=== PATIENT | female | born 1970 | race Caucasian/White ===

== ENCOUNTER 2016-10-07 08:56 | Day surgery (SDC) | payer BC ==
[~2016-10-07 08:56] MED LIST: ACETAMINOPHEN 500 MG TABLET PO PRN; HYDROmorphone HCL 2 MG/ML VIAL IV PRN; MAG HYDROX/ALUMINUM HYD/SIMETH 30 ML UDC PO PRN; MAGNESIUM HYDROXIDE 30 ML UDC PO PRN; ONDANSETRON HCL/PF 2 MG/ML VIAL IV PRN; PROMETHAZINE HCL 25 MG in DEXTROSE 5 % IN WATER 50 ML IV PRN; RINGERS SOLUTION,LACTATED 1,000 ML IV PRN; ZOLPIDEM TARTRATE 5 MG TABLET PO PRN; ceFAZolin SODIUM 1 GM VIAL IV PRN; diphenhydrAMINE HCL 50 MG/ML VIAL IV PRN; oxyCODONE HCL/ACETAMINOPHEN 1 TAB TABLET PO PRN
[2016-10-07] MEDS ORDERED: BUPIVACAINE HCL 50 ML VIAL IJ ONE (10:05)
--- NOTE | 2016-10-07 11:06 | OR ---
Operative Report - Dictated Report Narrative: Date: 10/07/2016 Physician: Carlos Velasquez M.D. [place] Supervisor: Sánchez Rider PA-C Preoperative diagnosis: Right volar wrist ganglion cyst Postoperative diagnosis: Right volar wrist ganglion cyst Procedure: Excision of right volar wrist ganglion cyst Anesthesia: MAC plus local Complications: None Estimated blood loss: Minimal Tourniquet time: 28 Minutes at 250 mmHg Specimens: None Retained implants: None Drains: None Indications: Germán Is a 46 year-old female who has been followed in my clinic with complaints of a volar wrist ganglion. This was excised 7 years ago but recurred and over the last several months has become quite large in size. Conservative measures including aspiration have failed. The risks, benefits, and alternatives were discussed in clinic. The risks being bleeding, infection , nerve, tendon, blood vessel injury, persistent pain, wound complications, and recurrence. Consent was obtained in the clinic. Procedure: After marking the correct extremity in the preoperative holding area, a timeout was performed in the operating room. IV antibiotics consisting of 1 g of Ancef were administered prior to the procedure. A well-padded tourniquet was applied to the operative upper arm. The arm was exsanguinated and the tourniquet was inflated to 250 mmHg. 0.5% Marcaine without epinephrine was infused into the projected incision site. We marked out an incision over the cyst. The skin directly over the cyst was very thin and quite stretched so we bao out an elliptical incision in order to ellipse out the central portion of the skin to obtain a better closure at the conclusion of the procedure. Incision was made and the central portion the skin was ellipsed out. combination of blunt dissection and sharp dissection with tenotomy scissors as well as electrocautery was undertaken to carefully dissect out the ganglion. It started just lateral to the FCR tendon which was retracted medially. We explored the wound and attempted to locate the radial artery and found what appeared to be the proximal and distal stalks however the portion of the artery running next to the cyst was obliterated and scarred in to the cyst likely due to the long-standing nature of the cyst itself. We continued our dissection circumferentially around the cyst and followed it all the way down to the radiocarpal joint which appeared to be where it was originating from. We were careful not to injure the volar radiocarpal ligaments. We identified what appeared to be the stalk extending from the volar aspect of the radiocarpal joint and ablated this with our bipolar electrocautery. The ganglion was then removed from the wound and placed in a specimen cup to be sent to pathology. We explored the wound one last time to assure that we had not left any portions of the cyst and felt that we had resected the cyst in its entirety including the stalk. Tourniquet was then let down and hemostasis was obtained with a combination of direct pressure and electrocautery. Gelfoam was placed deep in the wound to aid with hemostasis. The hand and fingers were inspected and found to have brisk capillary refill. Wound was then copiously irrigated with normal saline and closed with interrupted 4-0 nylon. Xeroform, 4 x 4's, soft roll, and a well-padded dorsal short arm wrist splint was applied. The patient was awoken and transferred to the post-anesthesia care unit in stable condition. All sponge, needle, blade, and instrument counts were correct prior to closing the wounds. Additional 0.5% Marcaine without epinephrine was infused into the skin edges for pain control.
[2016-10-07 11:58] VITALS: BP 113/70
[2016-10-07] MEDS ORDERED: SENNOSIDES/DOCUSATE SODIUM 1 TAB TABLET PO SCH (21:00)
== END 2016-10-07 08:57 | disposition home or self-care (01) ==
LOC: AMB 08:56
PROVIDERS: ATTEND Orthopaedic Surgery
PROC: 0XBG0ZZ Excision of Right Wrist Region, Open Approach (ICD-10-PCS; principal; 2016-10-07 10:30)
DX: M67.431 Ganglion, right wrist (principal); E03.9 Hypothyroidism, unspecified; F41.9 Anxiety disorder, unspecified; F32.9 Major depressive disorder, single episode, unspecified; Z87.891 Personal history of nicotine dependence; Z68.26 Body mass index [BMI] 26.0-26.9, adult

== ENCOUNTER 2017-01-10 22:59 | Emergency (ER) | payer BC ==
[2017-01-10 23:46] LABS: Hematocrit 40.8 % (37.0-47.0); Hemoglobin 13.9 gm/dL (12.5-16.0); Mean Cell Volume 97.1 fl (78-100); Mean Corpuscular Hemoglobin 33.1 pg (27-31); Mean Corpuscular Hgb Conc 34.1 g/dl (32-36); Mean Platelet Volume 11.6 fl (6.0-9.5); Neutrophil # 5.7 K/mm3 (1.3-6.0); Neutrophil % 50.2 % (42-75.0); Platelet Count 244 K/mm3 (150-450); Red Cell Distribution Width 13.4 % (11.5-14.0); White Blood Count 11.4 K/mm3 (4.0-10.5)
[2017-01-10 23:57] LABS: Prothrombin Time (Patient) 9.6 Seconds (9.4-11.4)
[2017-01-10 23:58] LABS: INR 0.92 INR (0.90-1.10); Partial Thrombolplastin Time 25.4 Seconds (24-32)
[2017-01-11 00:05] LABS: ALT 39 U/L (19-67); AST 22 U/L (0-48); Albumin * 3.6 gm/dl (3.4-5.0); Alkaline Phosphatase * 89 U/L (50-170); Anion Gap 11.7 mmol/L (6.8-13.8); BUN/Creatinine Ratio 17.2 (9.0-21.6); Bilirubin, Total 0.2 mg/dL (0.0-1.1); Blood Urea Nitrogen 15 mg/dL (3-23); Ca. Corrected For Albumin 8.6 mg/dL (8.4-10.2); Calcium * 8.6 mg/dL (7.9-10.9); Carbon Dioxide 28.2 mmol/L (24-32.6); Chloride 104 mmol/L (97-106); Glucose * 121 mg/dL (70-110); Potassium 3.9 mmol/L (3.4-4.6); Sodium 140 mmol/L (132-142); Total Protein 7.1 gm/dL (6.2-8.2); Troponin I Less than 0.017 ng/ml (0.00-0.10)
--- NOTE | 2017-01-11 02:05 | ERNOTE ---
Chest Pain/Cardiac HPI Date of Service: 01/11/17 Chief Complaint: Chest Pain Time Seen by Provider: 01/11/17 01:59 Source: patient, family Immunizations: IMMUNIZATION HX Immunizations Up to Date Unk History of Influenza Vaccine Yes Hx Pneumococcal Vaccination No Allergies/Adverse Reactions: Allergies duloxetine HCl [From Cymbalta] Adverse Reaction (Mild, Verified 10/07/16 09:10) Nausea terbinafine HCl [From Lamisil] Adverse Reaction (Mild, Verified 10/07/16 09:10) Nausea Home Medications: HOME MEDICATIONS Atorvastatin Calcium [Lipitor] 20 mg PO DAILY 05/03/16 [Last Taken Unknown] Levothyroxine Sodium [Tirosint] 50 mcg PO DAILY 05/03/16 [Last Taken Unknown] Venlafaxine HCl 75 mg PO DAILY 05/03/16 [Last Taken Unknown] ALPRAZolam [Xanax] 0.5 mg PO HS 10/06/16 [Last Taken Unknown] Narrative: C/O CHEST PAIN WHILE HAVING INTERCOURSE [employer] [employer]. DENIES HX OF CHEST PAIN OR HEART DISEASE. DOES HAVE HTN AND ANXIETY HX. SHE SAYS PAIN WAS AT RIGHT MEDIAL CHEST TO LEFT MEDIAL CHEST AND INTO RIGHT NECK AND JAW. IT STARTED AT 2230 AND LASTED ABOUT 45 MINS. NO SOB OR DIAPHORESIS. SHE IS FINE NOW . SHE SAYS THAT THERE IS FHX OF DAD WITH CABG. Review of Systems - Review of Systems Constitutional: Present: See HPI Respiratory: Present: no symptoms reported Cardiology: Present: See HPI, chest pain Gastrointestinal/Abdominal: Present: no symptoms reported Musculoskeletal: Present: no symptoms reported Skin: Present: no symptoms reported Neurological: Present: no symptoms reported Psych: Present: no symptoms reported All Other Systems: All systems neg except as marked - Patient's Past Medical History Patient History - Medical: Anxiety, Depression, Hypothyroidism, Migraines, Other Patient History - Cardiac/Respiratory: Hyperlipidemia Patient History - Cancer: No Hx of Cancer Patient History - Surgical Procedures: Tubal Ligation Patient History - Other: None - Family History Father Family History - Medical: Diabetes Type 2 Family History - Cardiac/Respiratory: No pertinent hx Family History - Cancer: No pertinent family hx Mother Family History - Medical: Diabetes Type 2 Family History - Cardiac/Respiratory: CVA/Stroke, Myocardial Infarction Family History - Cancer: Cervical - Social History Living Situations: spouse Abuse History: No History of abuse Psych History: Hx of Anxiety, Hx of Depression, Current tx/ever been on anti- depressants or anti-anxiety meds Smoking Status: Current every day smoker Patient requests Smoking Cessation Consult: No Initiate information on Smoking Cessation: No Alcohol Use: none Drug Use: other - Immunizations Immunizations Up to Date: - Unk Hx Pneumococcal Vaccination: No History of Influenza Vaccine: Yes Physical Exam - Physical Exam General Appearance: Present: wd/wn, alert, no apparent distress Respiratory: Present: no respiratory distress, normal breath sounds, no accessory muscle use, chest nontender, lungs clear Cardiovascular/Chest: Present: regular rate, rhythm, no murmur, normal peripheral pulses Peripheral Pulses: N=norm/S=strong/W=weak/B=bound/A=absent: Dorsalis-pedis (R): Normal, Dorsalis-pedis (L): Normal Gastrointestinal/Abdominal: Present: normal bowel sounds, nontender Back Exam: Present: normal inspection, no CVA tenderness, no vertebral tenderness Extremity Exam: Present: normal inspection, no edema Neurological Exam: Present: alert, oriented Skin Exam: Present: normal color ED Progress - Results and Orders Patient's Lab Results:: I have reviewed the patient's lab results. Results and Orders: LABS ARE NEG. INCLUDING TWO TROP 4 HR APART - Vital Signs Patient's Vital Signs:: I have reviewed the patient's vital signs. Vital Signs: Vital Signs 01/10/17 01/10/17 01/10/17 23:03 23:10 23:54 Temperature 36.4 C L 36.5 C Pulse Rate 71 73 66 Respiratory 16 14 Rate Blood Pressure 144/85 122/83 O2 Sat by Pulse 99 98 Oximetry - EKG EKG: NSR, no ST T wave changes - X-Ray X-Ray #1 X-Ray: chest Interpretation: Interp. by me - WNL - Progress/Reassessment Chief Complaint: Chest Pain Progress:: Pain free at discharge - Transfer of Care Expected Disposition: Discharge Departure - Departure Clinical Impression: Chest pain of unknown etiology Disposition: Home Follow Up Needed Condition: Good Instructions: Chest Pain Observation Additional Instructions: THERE IS NOT CURRENT SIGN OF A HEART ATTACK . I CAN NOT TELL YOU FOR SURE THAT YOU DO NOT HAVE CORONARY ARTERY DISEASE SO IT IS NECESSARY THAT YOU FOLLOW UP WITH YOUR FAMILY DOCTOR AND MAKE ARRANGEMENTS FOR FURTHER EVALUATION. IF WORSE BEFORE THEN YOU SHOULD RETURN TO THE ER. IT WOULD BE GOOD TO TAKE A DAILY BABY ASPIRIN FOR NOW. Referrals: Negra Meek MD [Primary Care Provider] -
--- OUTSIDE RECORDS SUMMARY | 2017-01-11 02:47 | XMS REPORT | Continuity of Care Document ---
:1970 Author Organization [facility] ([facility]) Address [address] [place] [address] Phone [phone] Care Team Providers Name Role Phone Unavailable Primary Care Provider Unavailable Source Comments This disclosure is being made pursuant to the Care Everywhere program, applicable federal and state laws, and may not contain all informaitonavailable regarding this patient.[facility] ([facility]) Active Allergies and Adverse Reactions Not on File Current Medications Not on file Active Problems Not on file Social History Tobacco Use Types Packs/Day Years Used Date Never Assessed Plan of Care Health Maintenance Due Date Last Done Comments Hepatitis B Vaccine (1 of 3 - Primary Series) 1970 Tdap Vaccine 1981 Lipid Disorder Screening 1988 MMR Vaccine 1988 Td Vaccine 1988 Cervical Cancer Screening 2000 Mammogram 2010 Influenza Vaccine: Seasonal (#1) 04/14/2016 Results from Last 3 Months Not on file
[2017-01-11 04:24] VITALS: BP 102/58
== END 2017-01-11 04:41 | disposition home or self-care (01) ==
LOC: ER 22:59
DX: R07.89 Other chest pain (principal); F17.210 Nicotine dependence, cigarettes, uncomplicated; E78.5 Hyperlipidemia, unspecified; F41.9 Anxiety disorder, unspecified; E03.9 Hypothyroidism, unspecified; F32.9 Major depressive disorder, single episode, unspecified

== ENCOUNTER 2017-09-02 08:46 | Day surgery (SDC) | payer BC ==
[~2017-09-02 08:46] MED LIST changes: -ACETAMINOPHEN 500 MG TABLET PO PRN; -HYDROmorphone HCL 2 MG/ML VIAL IV PRN; -MAG HYDROX/ALUMINUM HYD/SIMETH 30 ML UDC PO PRN; -MAGNESIUM HYDROXIDE 30 ML UDC PO PRN; -ONDANSETRON HCL/PF 2 MG/ML VIAL IV PRN; -PROMETHAZINE HCL 25 MG in DEXTROSE 5 % IN WATER 50 ML IV PRN; +RINGER'S SOLUTION,LACTATED 1,000 ML IV PRN; -RINGERS SOLUTION,LACTATED 1,000 ML IV PRN; -ZOLPIDEM TARTRATE 5 MG TABLET PO PRN; -ceFAZolin SODIUM 1 GM VIAL IV PRN; +ceFAZolin SODIUM 1 GM in DEXTROSE 5 % IN WATER 100 ML IV PRN; -diphenhydrAMINE HCL 50 MG/ML VIAL IV PRN; -oxyCODONE HCL/ACETAMINOPHEN 1 TAB TABLET PO PRN
[2017-09-02] MEDS ORDERED: RINGER'S SOLUTION,LACTATED 1,000 ML IV ONE ×3 (09:23→14:25)
[2017-09-02] MEDS ORDERED: LIDOCAINE HCL/EPINEPHRINE 50 ML VIAL IJ ONE ×3 (12:30)
[2017-09-02] MEDS ORDERED: diphenhydrAMINE HCL 50 MG/ML VIAL IV PRN (15:25)
[2017-09-02] MEDS ORDERED: NALOXONE HCL 0.4 MG/ML VIAL IV PRN (15:25)
[2017-09-02] MEDS ORDERED: HYDROmorphone HCL 2 MG/ML VIAL IV PRN (15:25)
[2017-09-02] MEDS ORDERED: PROMETHAZINE HCL 12.5 MG in DEXTROSE 5 % IN WATER 50 ML IV PRN ×2 (15:25)
--- NOTE | 2017-09-02 15:57 | OR ---
Operative Report - Dictated Report Narrative: DATE OF PROCEDURE: 09/02/2017 INDICATIONS: 47 year old female with symptomatic uterovaginal prolapse, stress incontinence, and occasional fecal incontinence PREOPERATIVE DIAGNOSIS: Symptomatic uterovaginal prolapse, stress incontinence, occasional fecal incontinence POSTOPERATIVE DIAGNOSIS: [Same] PROCEDURE: [Total vaginal hysterectomy, anterior and posterior colpoperineorrhaphy, bilateral uterosacral ligament suspension, transvaginal mid -urethral sling using the 2[employer] Online Advantage System, Cystoscopy] SURGEON: Zach Lynn D.O. CAD CAM PROGRAMMER: OR staff ANESTHESIA: [General] ESTIMATED BLOOD LOSS: 100 mL URINE OUTPUT: 50 mL FLUID REPLACEMENT: 1700 mL SPECIMEN(S): [Uterus with cervix] FINDINGS: 10 week size uterus with patulous cervix, mild cystocele, moderate rectocele, genuine stress urinary incontinence TECHNIQUE: The patient was taken to the operating room and placed in dorsal lithotomy position after adequate general anesthesia was obtained, SCDs placed, and [1 g of Ancef] given intravenously. The cervix was grasped with 2 single- tooth tenacula and a paracervical block was given using 1% lidocaine with epinephrine. Posterior colpotomy was performed using Peres scissors. A long weighted speculum was placed into the posterior cul-de-sac. Anterior colpotomy was performed with Peres scissors and a right angle Manuela retractor was placed to retract the bladder. The bladder pillars were clamped with curved [place] 's, transected and Manuela stitch tied. The right uterosacral ligament was grasped with a curved [place] transected and Manuela stitch tied. The exact same was done on the other side. The remaining pedicles were then sequentially doubly coagulated and transected distally using the LigaSure device. The uterus was removed in total. The fallopian tubes and ovaries were high in the pelvis and not removed. The uterosacral ligaments were identified on either side and noted to be securely attached at their proximal origins. The right corner pedicle suture was placed through the proximal end of the right uterosacral ligament at the level of the ischial spine through the anterior then posterior corner of the vaginal mucosa. The exact same was done on the patient's left side. The sutures were tagged and held for later use. The vaginal cuff was closed with a series of [id number] 0 Vicryl sutures. The vaginal mucosa was grasped at the introitus at the 4 and 8 o'clock positions and a maryanne-shaped resection of peritoneal and vaginal mucosa was removed. The vaginal mucosal was dissected from the underlying rectovaginal fascia to the vaginal apex and laterally to the levator ani lateral border on either side. The rectovaginal fascia was plicated in the midline with a running 0 Vicryl suture. The ends of the suture was then brought out through the vaginal apex and held for later use. The perineal body was reapproximated with 0 Vicryl suture. Excess vaginal mucosa was excised and attention was turned to the anterior segment. A Mata catheter was inserted to drain the bladder and to determine the level of the urethrovesical junction. The vaginal mucosa was grasped at the UV junction and at the vaginal apex. Scalpel was used to make a linear incision through the vaginal mucosa of the bladder. Using sharp and blunt dissection, the vaginal mucosa was dissected laterally from the underlying bladder. Using an 0 Vicryl suture, the bladder was plicated in midline with a running stitch. A second imbricating stitch was placed over the previous one from the UV junction to the vaginal apex. This suture was then brought out of the vaginal apex and tagged for later use. Excess vaginal mucosa was excised and the vaginal mucosa was closed with a running 3-0 Vicryl Rapide. The vaginal mucosa of the posterior floor of the vagina was closed with 3-0 Vicryl Rapide. The vaginal cuff was closed with a series of [id number] 0 Vicryl sutures. The sutures from the anterior and posterior repair were tied in the center. The corner stitches were then tied, pulling the vaginal apex up to the level of the ischial spine. A 5 mm abdominal incision was made 2 fingerbreadths above the pubic bone, 3 cm lateral to midline on either side of the mons pubis. A 2 cm vertical midline incision was made on the anterior vaginal wall at the level of the mid urethra. Using sharp and blunt dissection, a tunnel was formed below the mid urethra to the inferior pubic ramus on either side. The sling delivery device was inserted into the vaginal incision and advanced anterior laterally through the dissected space, under the inferior pubic ramus, perforating through the pubocervical and endopelvic fascia, traveling superiorly along the posterior surface of the pubic bone, passing through the space of Retzius, the rectus muscle, rectus sheath, and finally out the ipsilateral abdominal incision, aiming the entire time towards the ipsilateral shoulder. The exact same was done on the other side. After placing the dilator/mesh assembly, cystoscopy was performed to confirm bladder integrity and that urine was spurting freely from both ureteral orifices. A 7 Hegar dilator was placed in the urethra and a curved Jse clamp was placed between the mesh and urethra. The mesh/sleeve was adjusted to the appropriate tension and the sleeves were removed. The distal ends of the mesh were cut below the surface of the abdomen. Steri- Strips were placed over the abdominal incisions. The bladder was drained and the patient was transferred to postanesthesia care unit in good condition. Sponge, lap, instrument, and needle count were correct x 2. POSTOPERATIVE CONDITION: Good
[2017-09-02] MEDS ORDERED: RINGER'S SOLUTION,LACTATED 1,000 ML IV PRN (16:20)
[2017-09-02] MEDS ORDERED: oxyCODONE HCL/ACETAMINOPHEN 1 TAB TABLET PO PRN (16:21)
[2017-09-02] MEDS ORDERED: MORPHINE SULFATE 2 MG/ML DISP.SYRIN IV PRN (16:21)
[2017-09-02] MEDS ORDERED: IBUPROFEN 800 MG TABLET PO PRN (16:22)
[2017-09-02 20:51] VITALS: BP 107/71
== END 2017-09-02 08:47 | disposition home or self-care (01) ==
LOC: AMB 08:46
PROVIDERS: ATTEND Obstetrics & Gynecology
PROC: 0KQM3ZZ Repair Perineum Muscle, Percutaneous Approach (ICD-10-PCS; 2017-09-02)
PROC: 0TSC0ZZ Reposition Bladder Neck, Open Approach (ICD-10-PCS; 2017-09-02)
PROC: 0JQC0ZZ Repair Pelvic Region Subcutaneous Tissue and Fascia, Open Approach (ICD-10-PCS; 2017-09-02)
PROC: 0UT97ZZ Resection of Uterus, Via Natural or Artificial Opening (ICD-10-PCS; principal; 2017-09-02 10:15)
PROC: 0UTC7ZZ Resection of Cervix, Via Natural or Artificial Opening (ICD-10-PCS; 2017-09-02 10:15)
PROC: 0JUC0JZ Supplement of Pelvic Region Subcutaneous Tissue and Fascia with Synthetic Substitute, Open Approach (ICD-10-PCS; 2017-09-02 10:15)
DX: N81.4 Uterovaginal prolapse, unspecified (principal); D25.2 Subserosal leiomyoma of uterus; D25.0 Submucous leiomyoma of uterus; D25.1 Intramural leiomyoma of uterus; N88.8 Other specified noninflammatory disorders of cervix uteri; N39.3 Stress incontinence (female) (male); E03.9 Hypothyroidism, unspecified; R15.9 Full incontinence of feces; F31.89 Other bipolar disorder; F41.9 Anxiety disorder, unspecified; F17.200 Nicotine dependence, unspecified, uncomplicated; Z68.30 Body mass index [BMI] 30.0-30.9, adult